=== PATIENT | male | born 1990 | race African-American/Black ===

== ENCOUNTER 2016-10-25 20:56 | Emergency (ER) | payer OTHER ==
[2016-10-25 21:05] VITALS: BP 141/82; PULSE 53; TEMP 98.2; BMI 42.5
--- NOTE | 2016-10-25 21:24 | PDOC ---
History of Present Illness - General Chief Complaint: Pain, Acute Stated Complaint: PAIN IN TOE Time Seen by Provider: 10/25/16 21:14 History Source: Patient Exam Limitations: No Limitations - History of Present Illness Initial Comments: 10/25/16 21:27 26 yr male no medical history c/o pain to right great toe for 1 month. no medical history or allergies. Past History - Past Medical History Allergies/Adverse Reactions: Allergies Allergy/AdvReac Type Severity Reaction Status Date / Time No Known Allergies Allergy Verified 10/21/14 16:26 Home Medications: Ambulatory Orders Tolnaftate [Athlete's Foot] 130 gm TP BID #2 aero.powd 10/25/16 GI Disorders: Yes (OBESITY.) Other medical history: denies - Immunization History Immunization Up to Date: Yes - Psycho/Social/Smoking Cessation Hx Anxiety: No Suicidal Ideation: No Smoking Status: No Smoking History: Never smoked Have you smoked in the past 12 months: No Number of Cigarettes Smoked Daily: 0 Hx Alcohol Use: No Drug/Substance Use Hx: No Substance Use Type: Alcohol Hx Substance Use Treatment: No Review of Systems - Review of Systems Able to Perform ROS?: Yes Is the patient limited Slovak proficient: No Constitutional: No: Symptoms Reported HEENTM: No: Symptoms Reported Respiratory: No: Symptoms reported Cardiac (ROS): No: Symptoms Reported ABD/GI: No: Symptoms Reported : No: Symptoms Reported Musculoskeletal: No: Symptoms Reported Integumentary: Yes: See HPI *Physical Exam - Vital Signs Last Vital Signs Temp Pulse Resp BP Pulse Ox 98.2 F 53 L 20 141/82 100 10/25/16 21:03 10/25/16 21:03 10/25/16 21:03 10/25/16 21:03 10/25/16 21:03 - Physical Exam General Appearance: Yes: Nourished, Appropriately Dressed HEENT: positive: EOMI, ELA Extremity: positive: Normal Capillary Refill, Other (Erythema and white, macerated skin between the toes, greattoenail with dark colored discoloration , peeling nail ) Integumentary: positive: Normal Color, Dry, Warm Neurologic: positive: Fully Oriented, Alert, Normal Mood/Affect, Normal Response , Motor Strength 5/5 Medical Decision Making - Medical Decision Making 10/25/16 21:30 cc: foot pain toenail pain one month afebrile no trauma exam consistent with onychomycosis and tinea pedis I have discussed pt to follow with crm dynamics developer for possible oral antifungal treatment I will prescribe topical antifungal pt agrees with plan all questions asked and answered 10/25/16 21:32 *DC/Admit/Observation/Transfer Diagnosis at time of Disposition: Athlete's foot on right, Onychomycosis - Discharge Dispostion Disposition: HOME Condition at time of disposition: Good - Prescriptions Prescriptions: Tolnaftate [Athlete's Foot] 130 gm TP BID #2 aero.powd - Referrals Referrals: Gaurav Hu [Primary Care Provider] - Alex Gomez MD [Staff Physician] - - Patient Instructions Printed Discharge Instructions: DI for Athlete's Foot Additional Instructions: follow with the crm dynamics developer call Friday to make appointment dry feet completley when getting out of the shower use the medication as directed
== END 2016-10-25 21:34 | disposition home or self-care (01) ==
LOC: JERFT 20:56
DX: B35.1 Tinea unguium (principal); B35.3 Tinea pedis
CPT/HCPCS: 99281-25

== ENCOUNTER 2017-02-18 14:37 | Emergency (ER) | payer OTHER ==
[2017-02-18 14:47] VITALS: BP 157/85; PULSE 73; TEMP 98.4; BMI 41.2
--- NOTE | 2017-02-18 14:47 | PDOC ---
Rapid Medical Evaluation Time Seen by Provider: 02/18/17 14:44 Medical Evaluation: Allergies Allergy/AdvReac Type Severity Reaction Status Date / Time No Known Allergies Allergy Verified 10/21/14 16:26 02/18/17 14:44 I have performed a brief in-person evaluation of this patient. The patient presents with a chief complaint of: Hit head against wall during basketball last night. C/o SINGH, no LOC, dizziness, n/v. Pertinent physical exam findings:Well camilla and stable w/ unremarkable exam I have ordered the following:nothing The patient will proceed to the ED for further evaluation. Discharge Disposition - Referrals Referrals: Gaurav Hu [Primary Care Provider] - - Patient Instructions - Post Discharge Activity
--- NOTE | 2017-02-18 15:49 | PDOC ---
History of Present Illness <Smitha Kramer - Last Filed: 02/18/17 16:18> - History of Present Illness Initial Comments: 02/18/17 15:50 The patient is a 26 year old male with no pertinent past medical history, presents to the emergency department complaining of a headache since yesterday. Patient yesterday was playing indoor basketball when he had stumbled and hit the right side of his head on the wall. Patient denies loss of consciousness from impact. Patient was able to continue playing immediately afterwards. Later in the evening patient developed a headache and mild nausea. Patient denies any vomiting. Patient this morning woke up with improved nausea however his headache had become worse. The headache is diffuse. The Patient denies the use of OTC medications for pain. Pain is not provoked with positional changes. He reports photophobia and sensitivity to noises. He denies any neck pain or back pain. Denies any unilateral weakness. <John Hassan - Last Filed: 02/18/17 16:21> - General Chief Complaint: Injury Stated Complaint: FALL/Headache Time Seen by Provider: 02/18/17 14:44 Past History - Past Medical History COPD: No GI Disorders: Yes (OBESITY.) - Immunization History Immunization Up to Date: Yes - Suicide/Smoking/Psychosocial Hx Smoking Status: No Smoking History: Never smoked Have you smoked in the past 12 months: No Number of Cigarettes Smoked Daily: 0 Information on smoking cessation initiated: No Hx Alcohol Use: No Drug/Substance Use Hx: No Substance Use Type: Alcohol Hx Substance Use Treatment: No <Smitha Kramer - Last Filed: 02/18/17 16:18> <John Hassan - Last Filed: 02/18/17 16:21> - Past Medical History Allergies/Adverse Reactions: Allergies Allergy/AdvReac Type Severity Reaction Status Date / Time No Known Allergies Allergy Verified 02/18/17 14:44 Home Medications: Ambulatory Orders NK [No Known Home Medication] 02/18/17 Review of Systems - Review of Systems Able to Perform ROS?: Yes Comments:: 02/18/17 15:50 CONSTITUTIONAL: Absent: fever, no chills, no fatigue EYES: Present: sensitivity to light Absent: visual changes ENT: Present: Sensitivity to sounds, Absent: ear pain, no sore throat CARDIOVASCULAR: Absent: chest pain, no palpitations RESPIRATORY: Absent: cough, no SOB GI: Present: Nausea Absent: abdominal pain, No vomiting, no constipation, no diarrhea GENITOURINARY: Absent: dysuria, no frequency, no hematuria MUSKULOSKELETAL: Absent: back pain, neck pain, no arthralgia, no myalgia NEURO: Present: Headache Absent: Loss of counsiousness, unlilateral weakness Is the patient limited Luxembourgish proficient: No <John Hassan - Last Filed: 02/18/17 16:21> *Physical Exam - Vital Signs Last Vital Signs Temp Pulse Resp BP Pulse Ox 98.4 F 73 18 157/85 100 02/18/17 14:45 02/18/17 14:45 02/18/17 14:45 02/18/17 14:45 02/18/17 14:45 <DaliabrandonMonique estradaca - Last Filed: 02/18/17 16:18> - Vital Signs Last Vital Signs Temp Pulse Resp BP Pulse Ox 98.4 F 73 18 157/85 100 02/18/17 14:45 02/18/17 14:45 02/18/17 14:45 02/18/17 14:45 02/18/17 14:45 - Physical Exam Comments: 02/18/17 15:52 GENERAL: Well developed, well nourished. Awake and alert. No acute distress. HEENT: There is a small 2cm hematoma on the right temporal region that is tender to palpation. Negative racoon eyes. TM's are clear of blood, no mcneal signs. Normocephalic, PERRLA, EOMI. No conjunctival pallor. Sclera are non- icteric. Moist mucous membranes. Oropharynx is clear. NECK: Supple. Full ROM. No JVD. Carotid pulses 2+ and symmetric, without bruits. No thyromegaly. No lymphadenopathy. CARDIOVASCULAR: Regular rate and rhythm. No murmurs, rubs, or gallops. Distal pulses are 2+ and symmetric. PULMONARY: No evidence of respiratory distress. Lungs clear to auscultation bilaterally. No wheezing, rales or rhonchi. ABDOMINAL: Soft. Non-tender. Non-distended. No rebound or guarding. No organomegaly. Normoactive bowel sounds. MUSCULOSKELETAL Normal range of motion at all joints. No bony deformities or tenderness. No CVA tenderness. EXTREMITIES: No cyanosis. No clubbing. No edema. No calf tenderness. SKIN: Warm and dry. Normal capillary refill. No rashes. No jaundice. NEUROLOGICAL: Alert, awake, appropriate. Cranial nerves 2-12 intact. No deficits to light touch and temperature in face, upper extremities and lower extremities. No motor deficits in the in face, upper extremities and lower extremities. Normoreflexic in the upper and lower extremities. Normal speech. Toes are down- going bilaterally. Gait is normal without ataxia. PSYCHIATRIC: Cooperative. Good eye contact. Appropriate mood and affect. <John Hassan - Last Filed: 02/18/17 16:21> *DC/Admit/Observation/Transfer - Discharge Dispostion Admit: No <Smitha Kramer - Last Filed: 02/18/17 16:18> - Attestations Scribe Attestion: 02/18/17 15:55 Documentation prepared by John Hassan, acting as medical reception specialist for FLAKITA Friedman <John Hassan - Last Filed: 02/18/17 16:21> Diagnosis at time of Disposition: Concussion Qualifiers: Encounter type: initial encounter Loss of consciousness presence/duration: without LOC Qualified Code(s): S06.0X0A - Concussion without loss of consciousness, initial encounter - Discharge Dispostion Disposition: HOME Condition at time of disposition: Stable - Referrals Referrals: Gaurav Hu [Primary Care Provider] - - Patient Instructions Printed Discharge Instructions: DI for Concussion Additional Instructions: You have a headache after hitting your head. You most likely have a mild concussion. Take Tylenol 650 mg every 4 hours to help with pain. Do not take more than 4,000mg a day. Avoid looking at screens or doing close up work on computers, or reading books for the next 24-48 hours. You may use ice to help with the pain. Follow up with your primary care doctor in one week. Return to the ED if you have worsening pain, numbness, tingling, lightheadedness , trouble walking, vomiting, or any changes in your symptoms - Post Discharge Activity Forms/Work/School Notes: Back to Work
[2017-02-18] MEDS ORDERED: ACETAMINOPHEN 500 MG TABLET (FP) PO ONE (15:54)
[2017-02-18] MEDS ORDERED: ACETAMINOPHEN 500 MG TABLET (FP) ONE (16:01)
== END 2017-02-18 16:24 | disposition home or self-care (01) ==
LOC: JERFT 14:37
DX: S06.0X0A Concussion without loss of consciousness, initial encounter (principal); X58.XXXA Exposure to other specified factors, initial encounter; Y93.67 Activity, basketball; Y92.310 Basketball court as the place of occurrence of the external cause
CPT/HCPCS: 99281-25

== ENCOUNTER 2017-04-09 14:57 | Emergency (ER) | payer SELFPAY ==
[2017-04-09 15:13] VITALS: BP 136/86; PULSE 72; TEMP 99; BMI 38.9
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
[2017-04-09] MEDS ORDERED: IBUPROFEN 600 MG TABLET (FP) PO ONE ×2 (15:25→15:57)
== END 2017-04-09 16:49 | disposition home or self-care (01) ==
LOC: MERGE 14:57 → FER 14:57
DX: M54.5 Low back pain (principal); V43.52XA Car driver injured in collision with other type car in traffic accident, initial encounter; Y93.89 Activity, other specified; Y92.9 Unspecified place or not applicable; Y99.0 Civilian activity done for income or pay
CPT/HCPCS: 71046-TC; 72100-TC; 99282-25

== ENCOUNTER 2017-05-19 09:35 | Emergency (ER) | payer OTHER ==
[2017-05-19 09:40] VITALS: BP 156/86; PULSE 66; TEMP 98.2; BMI 40.1
[2017-05-19] MEDS ORDERED: ALBUTEROL SO4 2.5/IPRATROPIUM 0.5 INH SOL 3 ML VIAL.NEB. NEB ONE ×2 (11:15→11:16)
--- NOTE | 2017-05-19 11:35 | PDOC ---
History of Present Illness - General Chief Complaint: Respiratory Stated Complaint: COUGH Time Seen by Provider: 05/19/17 10:48 - History of Present Illness Initial Comments: 05/19/17 11:29 CHIEF COMPLAINT: cough, wheezing HISTORY OF PRESENT ILLNESS: 26 yo M with no PMH presents to [facility] with cough x 6 days and wheezing that began last night. Patient denies any fever, chills, nausea, or vomiting. PAST MEDICAL HISTORY: Denies past medical history FAMILY HISTORY: Denies SOCIAL HISTORY: Denies tobacco, alcohol, illicit drug use. SURGICAL HISTORY: Denies ALLERGIES: No known drug allergies REVIEW OF SYSTEMS as per [facility] PHYSICAL EXAM General Appearance: Well-appearing, appropriately dressed. No apparent distress. HEENT: EOMI, PERRLA. No conjunctival pallor. No photophobia, scleral icterus. Respiratory/Chest: Lungs CTAB. Cardiovascular: RRR. S1, S2. Gastrointestinal/Abdominal: Normal bowel sounds. Abdomen soft, non-distended. No tenderness or rebound tenderness. No organomegaly, pulsatile mass, guarding , hernia, hepatomegaly, splenomegaly. Musculoskeletal/Extremities: Normal inspection. FROM of all extremities, normal capillary refill. Pelvis Stable. No CVA tenderness. No tenderness to extremities, pedal edema, swelling, erythema or deformity. Integumentary: Appropriate color, dry, warm. 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 Fully oriented, alert. Appropriate mood/affect. Motor strength 5/5. No appreciable EOM palsy, facial droop or sensory deficit. Past History - Past Medical History Allergies/Adverse Reactions: Allergies Allergy/AdvReac Type Severity Reaction Status Date / Time No Known Allergies Allergy Verified 05/19/17 09:37 Home Medications: Ambulatory Orders Albuterol Sulfate Inhaler - [Ventolin HFA Inhaler -] 1 - 2 inh PO Q4H PRN #1 inhaler 05/19/17 Azithromycin [Zithromax 250mg Tablets -] 250 mg PO UTDICT #6 tab 05/19/17 Benzonatate [Tessalon Pearls -] 100 mg PO TID PRN #21 capsule 05/19/17 COPD: No GI Disorders: Yes (OBESITY.) Other medical history: DENIES. - Immunization History Immunization Up to Date: Yes - Suicide/Smoking/Psychosocial Hx Smoking Status: No Smoking History: Never smoked Have you smoked in the past 12 months: No Number of Cigarettes Smoked Daily: 0 Hx Alcohol Use: No Drug/Substance Use Hx: Yes (MARIJUANA) Substance Use Type: Alcohol, Marijuana Hx Substance Use Treatment: No *Physical Exam - Vital Signs Last Vital Signs Temp Pulse Resp BP Pulse Ox 98.2 F 66 19 156/86 97 05/19/17 09:38 05/19/17 09:38 05/19/17 09:38 05/19/17 09:38 05/19/17 09:38 ED Treatment Course - Medications Given in the ED: ED Medications Discontinued Medications Generic Name Dose Route Start Last Admin Trade Name Freq PRN Reason Stop Dose Admin Albuterol/Ipratropium 1 amp 05/19/17 11:15 05/19/17 11:17 Duoneb - NEB 05/19/17 11:16 1 amp ONCE ONE Administration Medical Decision Making - Medical Decision Making 05/19/17 11:32 26 yo M with no PMH presents to [facility] with cough x 6 days and wheezing that began last night. -duoneb Given duration of symptoms will rx abx. Advised patient to take medication as prescribed and follow up with PCP if symptoms persist. Advised patient of signs and symptoms for return to ED. Patient verbalized understanding and agrees to plan. *DC/Admit/Observation/Transfer Diagnosis at time of Disposition: Acute asthmatic bronchitis - Discharge Dispostion Disposition: HOME Condition at time of disposition: Stable Admit: No - Prescriptions Prescriptions: Albuterol Sulfate Inhaler - [Ventolin HFA Inhaler -] 1 - 2 inh PO Q4H PRN #1 inhaler PRN Reason: sob/wheezing Azithromycin [Zithromax 250mg Tablets -] 250 mg PO UTDICT #6 tab Benzonatate [Tessalon Pearls -] 100 mg PO TID PRN #21 capsule PRN Reason: Cough - Referrals Referrals: Gaurav Hu [Primary Care Provider] - - Patient Instructions Printed Discharge Instructions: DI for Acute Bronchitis Additional Instructions: Please take medications as prescribed. Follow up with your primary care doctor if symptoms persist past 5 days. If you develop any fever, chills, vomiting, diarrhea, or any new or worsening symptoms, please return to the ER. - Post Discharge Activity
== END 2017-05-19 11:40 | disposition home or self-care (01) ==
LOC: JERFT 09:35
PROC: 3E0F7GC Introduction of Other Therapeutic Substance into Respiratory Tract, Via Natural or Artificial Opening (ICD-10-PCS; principal; 2017-05-19)
DX: J45.901 Unspecified asthma with (acute) exacerbation (principal)
CPT/HCPCS: 99281-25

== ENCOUNTER 2018-06-23 14:14 | Emergency (ER) | payer OTHER ==
--- NOTE | 2018-06-23 14:20 | PDOC ---
Rapid Medical Evaluation Time Seen by Provider: 06/23/18 14:18 Medical Evaluation: Allergies Allergy/AdvReac Type Severity Reaction Status Date / Time No Known Allergies Allergy Verified 06/23/18 14:18 06/23/18 14:18 I have performed a brief in-person evaluation of this patient. The patient presents with a chief complaint of: right great toe pain- dx with onychomycosis 06/22 Pertinent physical exam findings: discolored right great toenail I have ordered the following: nothing The patient will proceed to the ED for further evaluation. 06/23/18 14:20 Discharge Disposition - Diagnosis Onychomycosis - Referrals - Patient Instructions - Post Discharge Activity
[2018-06-23 14:23] VITALS: BP 141/78; PULSE 85; TEMP 98.2; BMI 39.4
[2018-06-23] MEDS ORDERED: IBUPROFEN 400 MG TABLET (FP) PO ONE ×2 (14:36→14:40)
--- NOTE | 2018-06-23 14:36 | PDOC ---
History of Present Illness - General Chief Complaint: Pain Stated Complaint: RT TOE INJUR;Y Time Seen by Provider: 06/23/18 14:18 History Source: Patient Exam Limitations: Clinical Condition - History of Present Illness Initial Comments: 06/23/18 14:40 Patient with no significant past medical history present with complaint of intermittent pain and discoloration to toe nail of right great toe which has been going on for 4 months now and has seen PCP multiple times for symptoms and being put on antibiotics with no improvement. Patient has not seen podiatry for symptoms and patient reported toe nail is very brittle. Denies any trauma or injuries to toe or foot. Denies any other symptoms Timing/Duration: other (4 months) Past History - Past Medical History Allergies/Adverse Reactions: Allergies Allergy/AdvReac Type Severity Reaction Status Date / Time No Known Allergies Allergy Verified 06/23/18 14:18 Home Medications: Ambulatory Orders Ibuprofen 600 mg PO Q8H PRN #20 tablet 06/23/18 Ketoconozole 2% Cream [Nizoral 2% Cream -] 1 applic TP BID 14 Days #1 tube 06/23 Unobtainable 06/23/18 Cancer: No Cardiac Disorders: No CVA: No COPD: No GI Disorders: Yes (OBESITY.) - Surgical History Cardiac Surgery: No Cholecystectomy: No GI Surgery: No - Immunization History Immunization Up to Date: Yes - Suicide/Smoking/Psychosocial Hx Smoking Status: No Smoking History: Never smoked Have you smoked in the past 12 months: No Number of Cigarettes Smoked Daily: 0 Hx Alcohol Use: No Drug/Substance Use Hx: No Substance Use Type: Marijuana Hx Substance Use Treatment: No Review of Systems - Review of Systems Able to Perform ROS?: Yes Is the patient limited [place] proficient: No Constitutional: No: Weakness HEENTM: No: Symptoms Reported Respiratory: No: Symptoms reported Cardiac (ROS): No: Symptoms Reported ABD/GI: No: Symptoms Reported Integumentary: Yes: Symptoms Reported, See HPI, Change in Color (right great toenail), Other (discolored toenail of right great toe) All Other Systems: Reviewed and Negative *Physical Exam - Vital Signs Last Vital Signs Temp Pulse Resp BP Pulse Ox 98.2 F 85 20 141/78 97 06/23/18 14:18 06/23/18 14:18 06/23/18 14:18 06/23/18 14:18 06/23/18 14:18 - Physical Exam General Appearance: Yes: Nourished, Appropriately Dressed. No: Apparent Distress HEENT: positive: Normal ENT Inspection Neck: positive: Supple Respiratory/Chest: negative: Respiratory Distress, Accessory Muscle Use Cardiovascular: positive: Regular Rhythm, Regular Rate Musculoskeletal: positive: Normal Inspection Extremity: positive: Normal Inspection, Other (brown discoloration with brittle toenail of right great toe. no erythema to toe). negative: Erythema Integumentary: positive: Normal Color, Other (right great toenail discoloration) Neurologic: positive: Fully Oriented, Motor Strength 5/5 Medical Decision Making - Medical Decision Making 06/23/18 14:43 Patient with no significant past medical history present with complaint of over 4 months history of discoloration to toenail right great toe with intermittent pain to right great toe. Patient has seeing PCP multiple times for symptoms and treated with antibiotics without improvement .he reports seeing PCP yesterday and was put him on Cipro antibiotics still having pain to toenail. Exam significant for brown discoloration of toenail of right great toe. Brittle toenail consistent with fungal infection of toenail. Patient is stable for outpatient management on topical ketoconazole with Motrin as needed for pain and podiatry follow-up *DC/Admit/Observation/Transfer Diagnosis at time of Disposition: Onychomycosis - Discharge Dispostion Disposition: HOME Condition at time of disposition: Stable Decision to Admit order: No - Prescriptions Prescriptions: Ibuprofen 600 mg PO Q8H PRN #20 tablet PRN Reason: pain Ketoconozole 2% Cream [Nizoral 2% Cream -] 1 applic TP BID 14 Days #1 tube - Referrals Referrals: Christiano Ellsworth DPM [Staff Physician] - Sudhakar Newell MD [Staff Physician] - - Patient Instructions Printed Discharge Instructions: Brittle Nails (Alternative Therapy), DI for Onychomycosis Additional Instructions: soak toe apple cider vinegar to help with fungal infection. use medications as prescribed and take motrin as needed for pain. Follow-up with referred orthopedics - Post Discharge Activity
== END 2018-06-23 14:46 | disposition home or self-care (01) ==
LOC: JERFT 14:14
DX: B35.1 Tinea unguium (principal)
CPT/HCPCS: 99281-25

== ENCOUNTER 2018-09-01 23:40 | Emergency (ER) | payer OTHER | END 2018-09-02 02:44 | disposition home or self-care (01) | LOC: JER 23:40 | PROC: 3E02329 Introduction of Other Anti-infective into Muscle, Percutaneous Approach (ICD-10-PCS; principal; 2018-09-01) | DX: N30.00 Acute cystitis without hematuria (principal); H10.33 Unspecified acute conjunctivitis, bilateral ==

== ENCOUNTER 2019-03-18 13:52 | Emergency (ER) | payer OTHER ==
[2019-03-18 13:57] VITALS: BP 148/79; PULSE 65; TEMP 98; BMI 38.9
--- NOTE | 2019-03-18 13:58 | PDOC ---
Rapid Medical Evaluation Chief Complaint: Pain, Acute Time Seen by Provider: 03/18/19 13:56 Medical Evaluation: Allergies Allergy/AdvReac Type Severity Reaction Status Date / Time No Known Allergies Allergy Verified 09/01/18 23:45 03/18/19 13:56 I have performed a brief in-person evaluation of this patient. The patient presents with a chief complaint of: lower back pain radiating down to b/l groin area s/p heavy lifting at work today. Pt did not take anything for symptoms Pertinent physical exam findings: A&O x 3 in NAD I have ordered the following:x-ray of lumbasacral The patient will proceed to the ED for further evaluation. Discharge Disposition - Diagnosis Lumbago Qualifiers: Chronicity: acute Back pain laterality: bilateral Sciatica presence: with sciatica Sciatica laterality: bilateral sciatica Qualified Code(s): M54.42 - Lumbago with sciatica, left side - Discharge Dispostion Disposition: HOME - Referrals - Patient Instructions - Post Discharge Activity
--- NOTE | 2019-03-18 14:48 | PDOC ---
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 Patient reports the pain began from his low back and now he feels pain to his R testicle so he came right from work to be evaluated. No recent travel or sick contacts. PAST MEDICAL HISTORY: Denies past medical history FAMILY HISTORY: Denies SOCIAL HISTORY: Denies tobacco, alcohol, illicit drug use. SURGICAL HISTORY: Denies ALLERGIES: No known drug allergies REVIEW OF SYSTEMS General/Constitutional: Denies fever or chills. Denies weakness, weight change. HEENT: Denies change in vision. Denies ear pain or discharge. Denies sore throat. Cardiovascular: Denies chest pain or shortness of breath. Respiratory: Denies cough, wheezing, or hemoptysis. Gastrointestinal: Denies nausea, vomiting, diarrhea or constipation. Denies rectal bleeding. Genitourinary: Denies dysuria, frequency, or change in urination. Musculoskeletal: Pain to R back radiating to R groin. Denies joint or muscle swelling or pain. Denies neck or back pain. Skin: Denies rash or easy bruising. Neurologic: Denies headache, vertigo, loss of consciousness, or loss of sensation. Psychiatric: Denies depression or anxiety. PHYSICAL EXAM General Appearance: Well-appearing, appropriately dressed. No apparent distress. HEENT: EOMI, PERRLA, normal ENT inspection, normal voice, TMs normal, pharynx normal. No conjunctival pallor. No photophobia, scleral icterus. Neck: Supple. Trachea midline. No tenderness, rigidity, carotid bruit, stridor , lymphadenopathy, or thyromegaly. Respiratory/Chest: Lungs CTAB. No shortness of breath, chest tenderness, respiratory distress, accessory muscle use. No crackles, rales, rhonchi, stridor , wheezing, dullness Cardiovascular: RRR. S1, S2. No JVD, murmur, bradycardia, tachycardia. Vascular Pulses: Dorsalis-Pedis (R): 2+, Dorsalis-Pedis (L): 2+ Gastrointestinal/Abdominal: Normal bowel sounds. Abdomen soft, non-distended. No tenderness or rebound tenderness. No organomegaly, pulsatile mass, guarding , hernia, hepatomegaly, splenomegaly. Genitourinary: Normal external male genitalia without discharge or lesions. No scrotal edema or inguinal hernia appreciated. Cremasteric reflex intact b/l. Lymphatic: No adenopathy, tenderness. Musculoskeletal/Extremities: Normal inspection. FROM of all extremities, normal capillary refill. Pelvis Stable. No CVA tenderness. No tenderness to extremities, pedal edema, swelling, erythema or deformity. Integumentary: Appropriate color, dry, warm. 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 Fully oriented, alert. Appropriate mood/affect. Motor strength 5/5. No appreciable EOM palsy, facial droop or sensory deficit. 03/18/19 15:18 Past History - Past Medical History Allergies/Adverse Reactions: Allergies Allergy/AdvReac Type Severity Reaction Status Date / Time No Known Allergies Allergy Verified 03/18/19 13:57 Home Medications: Ambulatory Orders Ibuprofen 600 mg PO Q8H PRN #20 tablet 06/23/18 Ketoconozole 2% Cream [Nizoral 2% Cream -] 1 applic TP BID 14 Days #1 tube 06/23 Cefixime [Suprax -] 400 mg PO BID #20 capsule 09/02/18 Ciprofloxacin 0.3% Eye Drops [Ciloxan 0.3% Eye Drops --] 2 drop OP Q4HWA #1 bottle 09/02/18 Diclofenac Sodium [Voltaren -] 75 mg PO BID #14 tablet. 03/18/19 Cancer: No Cardiac Disorders: No CVA: No COPD: No GI Disorders: Yes (OBESITY.) - Surgical History Cardiac Surgery: No Cholecystectomy: No GI Surgery: No - Immunization History Immunization Up to Date: Yes - Psycho Social/Smoking Cessation Hx Smoking Status: No Smoking History: Never smoked Have you smoked in the past 12 months: No Number of Cigarettes Smoked Daily: 0 Hx Alcohol Use: No Drug/Substance Use Hx: No Substance Use Type: Marijuana Hx Substance Use Treatment: No *Physical Exam - Vital Signs Last Vital Signs Temp Pulse Resp BP Pulse Ox 98 F 65 18 148/79 100 03/18/19 13:53 03/18/19 13:53 03/18/19 13:53 03/18/19 13:53 03/18/19 13:53 Medical Decision Making - Medical Decision Making 03/18/19 15:20 28 yo M with no significant PMH presents to [facility] with low back pain radiating to R groin 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 -scrotal US scrotal US negative for torsion. Bilateral varicoceles. NSAIDS, follow up with urology. Advised patient to take medication as prescribed and follow up with urology within the next 2-3 days. Advised patient of signs and symptoms for return to ED. Patient verbalized understanding and agrees to plan. Discharge - Discharge Information Problems reviewed: Yes Clinical Impression/Diagnosis: Bilateral varicoceles Low back pain Qualifiers: Chronicity: acute Back pain laterality: bilateral Sciatica presence: with sciatica Sciatica laterality: bilateral sciatica Qualified Code(s): M54.42 - Lumbago with sciatica, left side Condition: Stable Disposition: HOME - Admission No - Additional Discharge Information Prescriptions: Diclofenac Sodium [Voltaren -] 75 mg PO BID #14 tablet.dr - Follow up/Referral Referrals: Xin Hayes MD [Primary Care Provider] - Kian Titus MD [Staff Physician] - - Patient Discharge Instructions Patient Printed Discharge Instructions: DI for Varicocele, DI for Low Back Pain Additional Instructions: Please take medications as prescribed. Follow-up with urology for further evaluation and management of your testicular pain. If you develop any new or worsening symptoms, please return to the ER. - Post Discharge Activity Work/Back to School Note: Back to Work
[2019-03-18] MEDS ORDERED: KETOROLAC TROMETHAMINE 60 MG/2 ML VIAL IM ONE (17:00)
[2019-03-18] MEDS ORDERED: IBUPROFEN 400 MG TABLET (FP) PO ONE ×2 (17:03→17:06)
== END 2019-03-18 17:12 | disposition home or self-care (01) ==
LOC: JERFT 13:52
DX: M54.42 Lumbago with sciatica, left side (principal); M54.41 Lumbago with sciatica, right side; I86.1 Scrotal varices; X50.0XXA Overexertion from strenuous movement or load, initial encounter; Y93.89 Activity, other specified; Y92.69 Other specified industrial and construction area as the place of occurrence of the external cause; Y99.0 Civilian activity done for income or pay
CPT/HCPCS: 76870-TC; 99281-25

== ENCOUNTER 2019-12-17 18:18 | Emergency (ER) | payer OTHER ==
[2019-12-17 18:42] VITALS: BP 138/88; PULSE 76; TEMP 98.2; BMI 26.7
--- NOTE | 2019-12-17 19:01 | PDOC ---
History of Present Illness - General Chief Complaint: Toothache Stated Complaint: SWOLLEN FACE Time Seen by Provider: 12/17/19 18:44 History Source: Patient Exam Limitations: No Limitations - History of Present Illness Is this a multiple visit Asthma Patient?: No Timing/Duration: getting worse Severity: mild Associated Symptoms: reports: other Past History - Travel History Traveled outside of the country in the last 30 days: No Close contact w/someone who was outside of country & ill: No - Medical History Allergies/Adverse Reactions: Allergies Allergy/AdvReac Type Severity Reaction Status Date / Time No Known Allergies Allergy Verified 12/17/19 18:36 Home Medications: Ambulatory Orders Clindamycin [Cleocin -] 300 mg PO TID #21 capsule 12/17/19 Cancer: No Cardiac Disorders: No CVA: No COPD: No GI Disorders: Yes (OBESITY.) - Surgical History Cardiac Surgery: No Cholecystectomy: No GI Surgery: No - Immunization History Immunization Up to Date: Yes - Psycho-Social/Smoking History Patient Lives Alone: No Lives with/in: parents Smoking Status: No Smoking History: Current every day smoker Have you smoked in the past 12 months: Yes Number of Cigarettes Smoked Daily: 0 Information on smoking cessation initiated: No - Substance Abuse Hx (Audit-C & DAST Scrn) How often the patient has a drink containing alcohol: Never Score: In Men: 4 or > Positive; In Women: 3 or > Positive: 0 Screen Result (Pos requires Nsg. Audit-10AR): Negative In the last yr the pt used illegal drug/Rx for NonMed reason: No Score: Yes response is considered Positive: 0 Screen Result (Positive result requires Nsg. DAST-10): Negative Review of Systems - Review of Systems Able to Perform ROS?: No Is the patient limited Serbian proficient: No Constitutional: No: Symptoms Reported HEENTM: Yes: Mouth Swelling. No: Dental Problems Respiratory: No: Symptoms reported Cardiac (ROS): No: Symptoms Reported ABD/GI: No: Symptoms Reported Integumentary: Yes: Lumps Neurological: No: Symptoms reported Endocrine: No: Symptoms Reported *Physical Exam - Vital Signs Last Vital Signs Temp Pulse Resp BP Pulse Ox 98.2 F 76 16 138/88 100 12/17/19 18:36 12/17/19 18:36 12/17/19 18:36 12/17/19 18:36 12/17/19 18:36 - Physical Exam General Appearance: Yes: Nourished, Appropriately Dressed. No: Apparent Distress HEENT: positive: Other (noted edeam to luq buccal mucosa and gum area, no drainage or foul odor, noted decay to #24). negative: Pale Conjunctivae Neck: positive: Supple Respiratory/Chest: negative: Respiratory Distress Gastrointestinal/Abdominal: negative: Distended Integumentary: positive: Normal Color Neurologic: positive: Motor Strength 5/5 (ambulatory) Medical Decision Making - Medical Decision Making 12/17/19 19:14 Chief complaint: Swelling to left upper quadrant and dental pain for the past few days patient took Motrin with moderate effect but swelling continues. Exam: Patient with edema to left upper quadrant along with decayed tooth #24. Plan follow-up with dentist clindamycin prescribed Motrin at home soft foods salt water rinses Discharge - Discharge Information Problems reviewed: Yes Clinical Impression/Diagnosis: Dental abscess Condition: Good Disposition: HOME - Additional Discharge Information Prescriptions: Clindamycin [Cleocin -] 300 mg PO TID #21 capsule - Follow up/Referral Referrals: Fredrick Zelaya [Primary Care Provider] - - Patient Discharge Instructions Patient Printed Discharge Instructions: DI for Tooth Abscess, DI for Dental Pain Additional Instructions: Please try to eat soft food avoid eating on your left side of mouth, and rinse with salt water after every meal. Take antibiotics as prescribed along with the Motrin that you have at home. Follow-up with your dentist next week - Post Discharge Activity
== END 2019-12-17 19:03 | disposition home or self-care (01) ==
LOC: JER 18:18 → JERFT 18:18
DX: K04.7 Periapical abscess without sinus (principal)
CPT/HCPCS: 99283-25

== ENCOUNTER 2023-08-30 22:24 | Emergency (ER) | payer OTHER ==
[2023-08-30 22:31] VITALS: BP 149/104; PULSE 94; RESP 22; TEMP 98.7; BMI 40.1
[2023-08-30] MEDS ORDERED: CLINDAMYCIN HCL 150 MG CAPSULE (FP) ONE (23:21)
[2023-08-30] MEDS: CLINDAMYCIN HCL 150 MG CAPSULE (FP) PO ONE (23:25)
== END 2023-08-30 23:25 | disposition home or self-care (01) ==
LOC: JER 22:24
DX: L02.411 Cutaneous abscess of right axilla (principal); R50.9 Fever, unspecified
CPT/HCPCS: 99283-25